=== PATIENT | female | born 1995 | race Caucasian/White ===

== ENCOUNTER 2017-04-10 01:20 | Observation (INO) ==
[2017-04-10] MEDS ORDERED: *HR* Morphine 2 MG/ML SYRINGE IVP PRN (12:57)
[2017-04-10] MEDS ORDERED: 0.9 % Sodium Chloride 1,000 ML IVC ONE (12:57)
[2017-04-10] MEDS ORDERED: Ondansetron 4 MG/2 ML VIAL IVP PRN (12:57)
--- NOTE | 2017-04-10 13:07 | General Surg History&Physical ---
Date of Encounter: 04/10/17 Time of Encounter: 13:04 Assessment and Plan (1) Abdominal pain Current Visit: Yes Status: Acute 21F h/o depression with RLQ pain and thickening of terminal ileum; normal appendix; - begin CLD; advance diet as tolerated - IVF: sliv when tolerating PO - I&O, vitals q4hrs - pain control: tramadol/tylenol - activity as tolerated - abx - repeat labs - serial exams - GI consult in Am, concern for possible Crohn's disease - no acute surgery The assessment and plan as outlined above was discussed with the patient and/or family members who expressed understanding and agreement. All questions were answered. Qualifiers: Abdominal location: right lower quadrant Qualified Code(s): R10.31 - Right lower quadrant pain History of Present Illness Chief complaint: abdominal pain HPI: Ms. Stone is a 21 year old female with a history of depression who presents with 3-4 days of abdominal pain localized to RLQ and R flank with associated nausea, vomiting and anorexia. No reports of fevers, chills, chest pain nor shortness of breath. She states that she has never had such pain before. Her last bowel movement was within the last 24hours. She is currently on her menstrual cycle. A Ct scan was obtained, which I personally reviewed and interpreted, demonstrating thickening of her terminal ileum, with a normal appendix. Past Med Surg Social Fam HX - Past Medical History Medical history: no medical history Psychiatric history: anxiety, depression - Past Surgical History Surgical History: no surgical history - Social History Smoking Status: Current some day smoker Smokeless Tobacco Status: No Alcohol use: none Drug use: none - Family History Mother Hx Family Cardiac Disorders: No Hx Family Respiratory Disorders: No Hx Family Cancer: No Hx Family GI Disorders: No Hx Family Genitourinary Disorders: No Hx Family Endocrine Disorder: No Hx Family Musculoskeletal Disorders: No Hx Family Neuromuscular Disorders: No Hx Family Neurologic Disorders: No Hx Family HEENT Disorders: No Hx Family Autoimmune Disorders: No Hx Family Reproductive Disorders: No Hx Family Psychosocial Disorders: No Hx Family Medical Disorders: No Medications and Allergies Sertraline [Zoloft] 25 mg PO DAILY 06/14/16 [History] 3 Allergy/AdvReac Type Severity Reaction Status Date / Time No Known Allergies Allergy Verified 04/09/17 20:36 Review of Systems All systems PM: A 10-system review of systems was performed and is negative for pertinent findings except as documented above in the HPI. General Surgery Exam Initial Vital Signs Temp Pulse Resp BP Pulse Ox 100.9 F H 93 16 108/60 95 04/10/17 06:41 04/10/17 06:41 04/10/17 06:41 04/10/17 06:41 04/10/17 06:41 - General physical appearance well developed, well nourished, no distress - Eyes normal ocular movement - ENT normal mucosa, normocephalic - Neck no lymphadectomy - Respiratory normal expansion, normal respiratory effort - Cardiovascular Cardiovascular exam: Present: RRR - Abdomen Abdomen general surgery: Present: soft, tender Abdominal Tenderness: Present: RLQ ( not much tenderness on exam) - Integumentary Integumentary general surgery: Present: warm and dry - Neurologic Present: CN 2-12 grossly intact - Musculoskeletal Present: other (FROM in UE/LE bilaterally) - Psychiatric Psychiatric general surgery: Present: A&Ox3 Results - Labs All other labs normal. - Imaging CT scan - abdomen: report reviewed, image reviewed CT scan - pelvis: report reviewed, image reviewed
[2017-04-10 13:22] LABS: Basophils # 0.1 K/mcL (0.0-0.2); Basophils % 0.4 %; Eosinophils # 0.1 K/mcL (0.0-0.6); Eosinophils % 0.2 %; Hematocrit 36.8 % (35.3-44.9); Hemoglobin 11.9 g/dL (11.5-15.4); Immature Granulocytes % 0.4 % (0-4); Lymphocytes % 9.6 %; Mean Corpuscular HGB Conc 32.3 g/dL (31.6-35.5); Mean Corpuscular Hemoglobin 28.4 pg (28.0-33.3); Mean Corpuscular Volume 87.8 fL (83.0-100.0); Mean Platelet Volume 10.3 fL (9.4-12.4); Monocytes # 1.2 K/mcL (0.0-1.3); Monocytes % 6.1 %; Neutrophils # 16.8 K/mcL (1.6-8.9); Platelet Count 260 K/mcL (140-400); Red Blood Count 4.19 M/mcL (3.82-4.97); Red Cell Distribution Width 12.6 % (11.5-14.5); Segmented Neutrophils % 83.3 %
[2017-04-10 13:36] LABS: BUN/Creatinine Ratio 8 (6-26); Blood Urea Nitrogen 7 mg/dL (7-20); Calcium 8.3 mg/dL (8.6-10.8); Carbon Dioxide 22 mEq/L (19-29); Chloride 107 mEq/L (98-109); Glucose 87 mg/dL (70-99); Magnesium 1.4 mg/dL (1.6-2.6); Osmolality,Calculated 281 (280-300); Phosphorous 2.9 mg/dL (2.3-4.7); Potassium 3.7 mEq/L (3.5-4.5); Sodium 137 mEq/L (136-145); eGFR For African Americans > 60 (> 60); eGFR For Non-African Americans > 60 (> 60)
[2017-04-10] MEDS: D5% in 0.45% NACL w KCl 20 MEQ/1,000 ML MLS IVC SCH (15:58)
[2017-04-10] MEDS: Piperacillin/Tazobactam 3.375 GM in 0.9 % Sodium Chloride Mini Bag 100 ML IVPB SCH ×2 (18:47→23:37)
[2017-04-10] MEDS: *HR* Enoxaparin 40 MG/0.4 ML SYRINGE SQ SCH (20:48)
[2017-04-10 21:06] LABS: Bilirubin,Urine Negative (Negative); Blood,Urine Large (Negative); Clarity,Urine Cloudy (Clear); Color,Urine Dark Yellow (Yellow); Glucose,Urine (UA) Normal (Normal); Ketones,Urine Negative (Negative); Leukocyte Esterase,Urine Small (Negative); Nitrite,Urine Negative (Negative); PH,Urine 7.5 pH Units (5.0-8.0); Protein,Urine 100 mg/dL (Neg-Trace); Specific Gravity,Urine 1.015 (1.010-1.025)
[2017-04-10 21:08] LABS: Bacteria,Urine None Seen per hpf (None-Few); Hyaline Casts,Urine None Seen per lpf (None-Few); Squamous Epithelial Cell,Urine Many per lpf (None-Few); WBC,Urine 50-100 per hpf (0-3)
[2017-04-10 21:18] LABS: RBC,Urine TNTC per hpf (0-3)
[2017-04-10] MEDS ORDERED: traMADol 50 MG TABLET PO PRN (23:06)
[2017-04-10] MEDS: Acetaminophen 325 MG TABLET PO PRN (23:35)
[2017-04-11] MEDS: Acetaminophen 325 MG TABLET PO PRN ×2 (08:07→16:29)
[2017-04-11] MEDS: *HR* Enoxaparin 40 MG/0.4 ML SYRINGE SQ SCH (08:08)
[2017-04-11 10:11] LABS: Bilirubin,Urine Small (Negative); Blood,Urine Large (Negative); Color,Urine Dark Yellow (Yellow); Glucose,Urine (UA) Normal (Normal); Ketones,Urine Negative (Negative); Leukocyte Esterase,Urine Moderate (Negative); Nitrite,Urine Negative (Negative); PH,Urine 6.5 pH Units (5.0-8.0); Protein,Urine 100 mg/dL (Neg-Trace); Specific Gravity,Urine 1.021 (1.010-1.025)
[2017-04-11 10:13] LABS: Clarity,Urine Hazy (Clear); Hyaline Casts,Urine None Seen per lpf (None-Few); Squamous Epithelial Cell,Urine Many per lpf (None-Few); WBC,Urine TNTC per hpf (0-3)
[2017-04-11 10:26] LABS: RBC,Urine 15-30 per hpf (0-3)
[2017-04-11 10:27] LABS: Bacteria,Urine Few per hpf (None-Few)
[2017-04-11] MEDS: D5% in 0.45% NACL w KCl 20 MEQ/1,000 ML MLS IVC SCH (10:32)
[2017-04-11] MEDS: Piperacillin/Tazobactam 3.375 GM in 0.9 % Sodium Chloride Mini Bag 100 ML IVPB SCH ×2 (10:33→16:29)
--- NOTE | 2017-04-11 11:15 | Gastroenterology Consult Note ---
Addendum entered and electronically signed by John Paul Perez DO 14:28: Patient will get colonoscopy tomorrow. Continue bowel prep as ordered. NPO. Original Note: <John Paul Perez - Last Filed: 04/11/17 13:41> Date of Encounter: 04/11/17 Time of Encounter: 11:09 - Assessment and plan (1) UTI (urinary tract infection) Current Visit: Yes Status: Acute Assessment and plan: UTI possible pyelonephritis +right flank pain continues to spike fever, CT shows urothelial thickening and enhancement of right renal pelvis and ureter. on zosyn worsening leukocytosis awaiting cultures Qualifiers: Urinary tract infection type: acute cystitis Hematuria presence: with hematuria Qualified Code(s): N30.01 - Acute cystitis with hematuria (2) Abdominal pain Current Visit: Yes Status: Acute Assessment and plan: RLQ + right flank pain denies N/V/D, hematochezia normal bowel movement three days ago denies family hx of inflammatory bowel disease first occurrence of pain CT abdomen/pelvis shows terminal ileum mural thickening/inflammation elevated ESR/CRP ANCA and Saccromyces cerevisiae abs pending patients history points towards an enteritis picture. Will await antibody results. If positive consider colonoscopy. otherwise follow up in two week outpatient office. Qualifiers: Abdominal location: right lower quadrant Qualified Code(s): R10.31 - Right lower quadrant pain - Time Spent With Patient Total time spent is greater than 50% in coordination of care (as documented) at patient's floor/unit and/or counseling patient: GI History of Present Illness - Data of Consult Patient: new to practice Consult date: 04/11/17 Requesting Physician: Kenroy Lazaro MD - Consult Narrative Reason for consult: concern for chron's disease History of present illness: Ms. Stone is a 21 year old female presented with chief complaint of right lower quadrant abdominal pain and right flank pain 2 days before admission. Patient states the pain is sharp, nonradiating and not associated with nausea, vomiting, diarrhea. She denies hematochezia, fevers, chills. Patient states she has never had this type of abdominal pain before and never has any abdominal pathology before. States she started her menstrual cycle 2 days ago. Reports her bowel pain is resolved today. Patient had CT abdomen/pelvis which showed inflammation/mural thickening of the terminal ileum and urothelial thickening and enhancement of the right renal pelvis and ureter. She had elevation in her ESR (27) and CRP (227). Furthermore urinalysis showed evidence of UTI with large leukocyte esterase and white blood cells and urine bacteria. Patient denies previous abdominal surgeries, previous pelvic surgeries. Denies any family history of inflammatory bowel disease, colon cancer. Reports drinking 1-2 cans of beer couple times a month. Reports smoking 1 pack a day. Currently patient is unemployed. Past Med Surg Social Fam HX - Past Medical History Medical history: no medical history Psychiatric history: anxiety, depression - Past Surgical History Surgical History: no surgical history - Social History Smoking Status: Current some day smoker Smokeless Tobacco Status: No Alcohol use: none Drug use: none - Family History Mother Hx Family Cardiac Disorders: No Hx Family Respiratory Disorders: No Hx Family Cancer: No Hx Family GI Disorders: No Hx Family Genitourinary Disorders: No Hx Family Endocrine Disorder: No Hx Family Musculoskeletal Disorders: No Hx Family Neuromuscular Disorders: No Hx Family Neurologic Disorders: No Hx Family HEENT Disorders: No Hx Family Autoimmune Disorders: No Hx Family Reproductive Disorders: No Hx Family Psychosocial Disorders: No Hx Family Medical Disorders: No Review of Systems: Constitutional: Denies fever, chills HEENT: Denies headache, vision changes, neck pain, sore throat, rhinorrhea Heart: Denies chest pain palpitations Lungs: Denies shortness of breath cough Abdomen: Reported abdominal pain. denies nausea, vomiting, diarrhea Back: Denies back pain Kidney: Denies dysuria, hematuria Skin: warm and dry Extremities: Denies swelling, pain Neuro: Denies numbness, and tingling - Constitutional Vitals: Temp Pulse Resp BP Pulse Ox 98.8 F 90 14 95/59 100 04/11/17 09:53 04/11/17 09:53 04/11/17 09:53 04/11/17 09:53 04/11/17 09:53 - Other Additional findings: General: Pleasant without distress HEENT: Head atraumatic, normocephalic, EOMI, PERRLA, neck nontender to palpation , absent lymphadenopathy, Moist Mucous Membranes, Heart: Regular rate and rhythm with no murmur Lungs: Clear to auscultation bilaterally Abdomen: Soft nontender, nondistended positive bowel sounds Skin: warm and dry Extremities: Absent pedal edema, Kidney: right flank pain Neuro: Cranial nerves II through XII intact, UE and LE sensation equal bilaterally, UE and LEstrength 5/5, alert oriented 3, Heel to lizarraga intact, finger to nose intact, Gait intact, rhombergs sign negative, b/l plantar reflexes downwards Vascular: Pedal and radial pulses 2 out of 4 Results - Labs CBC & Chem 7: 04/10/17 13:13 04/10/17 13:13 Labs: Last Result ESR 71 mm/hr (0-15) H 04/11/17 10:18 Calcium 8.3 mg/dL (8.6-10.8) L 04/10/17 13:13 C-Reactive Protein 227 mg/L (Less than 5) H 04/11/17 10:18 Entire Visit Hgb 11.9 g/dL (11.5-15.4) 04/10/17 13:13 Hct 36.8 % (35.3-44.9) 04/10/17 13:13 Consult Discharge Plan - Plan Referrals: NONE,PCP [Primary Care Provider] - <Josefa Rosales - Last Filed: 04/11/17 14:38> Date of Encounter: 04/11/17 - Time Spent With Patient Total time spent is greater than 50% in coordination of care (as documented) at patient's floor/unit and/or counseling patient: GI History of Present Illness - Data of Consult Requesting Physician: Kenroy Lazaro MD - Consult Narrative History of present illness: Ms. Stone is a 21 year old female - Constitutional Vitals: Temp Pulse Resp BP Pulse Ox 100.2 F H 100 16 101/60 94 04/11/17 12:26 04/11/17 12:26 04/11/17 12:26 04/11/17 12:26 04/11/17 12:26 Results - Labs CBC & Chem 7: 04/10/17 13:13 04/10/17 13:13 Labs: Last Result ESR 71 mm/hr (0-15) H 04/11/17 10:18 Calcium 8.3 mg/dL (8.6-10.8) L 04/10/17 13:13 C-Reactive Protein 227 mg/L (Less than 5) H 11/27/17 10:18 Entire Visit Hgb 11.9 g/dL (11.5-15.4) 04/10/17 13:13 Hct 36.8 % (35.3-44.9) 04/10/17 13:13 - Attending Attestation I examined this patient and my medical decision-making was reviewed with the Resident Physician. I agree with the documented findings, disposition and treatment plan as described except to the extent set forth below. Patient with an 21-year-old female with a pyelonephritis. She is also having terminal bowel wall thickening but do not have chronic GI symptoms doubt that she has Crohn disease. Probably she is having acute enteritis but because patient do not seem to be a compliant patient I am concerned that she will not follow up as out pt will do we will do a colonoscopy with TI examination to make sure there is no ulceration/Crohns
--- NOTE | 2017-04-11 13:15 | General Surgery Progress Note ---
Date of Encounter: 04/11/17 Time of Encounter: 13:11 - Assessment and Plan (1) Abdominal pain Current Visit: Yes Status: Inactive 21F with terminal ileitis; - GI for C-Scope in Am - cont abx - follow up urine culture Qualifiers: Abdominal location: right lower quadrant Qualified Code(s): R10.31 - Right lower quadrant pain Subjective Patient reports: no new complaints (febrile yesterday to 103) Objective Vital Signs - Last 8 Hours Temp Pulse Resp BP Pulse Ox 04/11/17 12:26 100.2 F H 100 16 101/60 94 04/11/17 09:53 98.8 F 90 14 95/59 100 04/11/17 07:11 103.0 F H 94 16 93/57 97 04/11/17 05:27 99.4 F 108 18 107/57 98 Intake and Output 04/10/17 04/11/17 04/11/17 23:59 07:59 15:59 Intake Total 50 / 50 1100 / 1100 Output Total 250 / 250 Balance -200 / -200 1100 / 1100 Intake: IV Fluids 50 / 50 1100 / 1100 KCl 20mEq IN D5%-0.45 NACL 20 1000 / 1000 meq In 1,000 ml @ 100 mls/hr IVC .Q10H EMILY Rx#:[id number] Zosyn 3.375 GM In 0.9 % Sodium 50 / 50 100 / 100 Chloride (Mini-Bag +) 100 ML @ 25 mls/hr IVPB Q8HR EMILY Rx#: [id number] Oral 0 / 0 0 / 0 Output: Urine 250 / 250 Other: Meal NPO for breakfast. # Voids 1 Blood Glucose* 93 - General physical appearance well developed, well nourished, no distress - Respiratory normal expansion, normal respiratory effort - Cardiovascular Cardiovascular exam: Present: RRR - Abdomen Abdomen: Present: soft, tender (minimally tender) - Neurologic CN 2-12 grossly intact - Psychiatric oriented to time, oriented to person, oriented to place - Labs 04/10/17 13:13 04/10/17 13:13 Diabetes panel 04/10/17 Range/Units 13:13 Sodium 137 (136-145) mEq/L Potassium 3.7 (3.5-4.5) mEq/L Chloride 107 (98-109) mEq/L Carbon Dioxide 22 (19-29) mEq/L BUN 7 (7-20) mg/dL Creatinine 0.89 (0.57-1.11) mg/dL Glucose 87 (70-99) mg/dL Calcium 8.3 L (8.6-10.8) mg/dL Calcium panel 04/10/17 Range/Units 13:13 Calcium 8.3 L (8.6-10.8) mg/dL Phosphorus 2.9 (2.3-4.7) mg/dL Pituitary panel 04/10/17 Range/Units 13:13 Sodium 137 (136-145) mEq/L Potassium 3.7 (3.5-4.5) mEq/L Chloride 107 (98-109) mEq/L Carbon Dioxide 22 (19-29) mEq/L BUN 7 (7-20) mg/dL Creatinine 0.89 (0.57-1.11) mg/dL Glucose 87 (70-99) mg/dL Calcium 8.3 L (8.6-10.8) mg/dL Adrenal panel 04/10/17 Range/Units 13:13 Sodium 137 (136-145) mEq/L Potassium 3.7 (3.5-4.5) mEq/L Chloride 107 (98-109) mEq/L Carbon Dioxide 22 (19-29) mEq/L BUN 7 (7-20) mg/dL Creatinine 0.89 (0.57-1.11) mg/dL Glucose 87 (70-99) mg/dL Calcium 8.3 L (8.6-10.8) mg/dL Consult Discharge Plan - Plan Referrals: NONE,PCP [Primary Care Provider] -
[2017-04-11 16:36] LABS: Basophils # 0.1 K/mcL (0.0-0.2); Basophils % 0.4 %; Eosinophils # 0.1 K/mcL (0.0-0.6); Eosinophils % 0.4 %; Hematocrit 37.2 % (35.3-44.9); Hemoglobin 11.8 g/dL (11.5-15.4); Immature Granulocytes % 0.6 % (0-4); Lymphocytes # 1.5 K/mcL (0.6-4.6); Lymphocytes % 9.2 %; Mean Corpuscular HGB Conc 31.7 g/dL (31.6-35.5); Mean Corpuscular Hemoglobin 27.8 pg (28.0-33.3); Mean Corpuscular Volume 87.7 fL (83.0-100.0); Monocytes # 1.2 K/mcL (0.0-1.3); Monocytes % 7.3 %; Neutrophils # 12.9 K/mcL (1.6-8.9); Platelet Count 262 K/mcL (140-400); Red Blood Count 4.24 M/mcL (3.82-4.97); Red Cell Distribution Width 12.9 % (11.5-14.5); Segmented Neutrophils % 82.1 %
[2017-04-11] MEDS ORDERED: SODIUM CHLORIDE/NAHCO3/KCL/PEG 4,000 ML SOLN.RECON PO ONE (17:00)
[2017-04-12] MEDS: Piperacillin/Tazobactam 3.375 GM in 0.9 % Sodium Chloride Mini Bag 100 ML IVPB SCH ×2 (00:40→09:00)
[2017-04-12] MEDS: D5% in 0.45% NACL w KCl 20 MEQ/1,000 ML MLS IVC SCH ×2 (00:45→12:25)
[2017-04-12] MEDS: *HR* Enoxaparin 40 MG/0.4 ML SYRINGE SQ SCH (06:29)
--- NOTE | 2017-04-12 08:02 | General Surgery Progress Note ---
Date of Encounter: 04/12/17 Time of Encounter: 08:00 - Assessment and Plan (1) Abdominal pain Current Visit: Yes Status: Inactive 21F with terminal ileitis; febrile overnight, wbc decreasing - plan for C-scope with GI today - further management pending results - cont abx - likely begin diet after procedure Qualifiers: Abdominal location: right lower quadrant Qualified Code(s): R10.31 - Right lower quadrant pain Subjective Patient reports: other (febrile; pain controlled; no acute issues overnight) Objective Vital Signs - Last 8 Hours Temp Pulse Resp BP Pulse Ox 04/12/17 06:49 99.2 F 96 16 107/57 95 04/12/17 04:01 99.4 F 68 16 111/65 97 04/12/17 00:21 101.0 F H 75 16 93/53 95 Intake and Output 04/11/17 04/12/17 04/12/17 23:59 07:59 15:59 Intake Total 1100 / 1100 0 / 0 Output Total 0 / 0 0 / 0 Balance 1100 / 1100 0 / 0 Intake: IV Fluids 1100 / 1100 KCl 20mEq IN D5%-0.45 NACL 20 1000 / 1000 meq In 1,000 ml @ 100 mls/hr IVC .Q10H EMILY Rx#:[id number] Zosyn 3.375 GM In 0.9 % Sodium 100 / 100 Chloride (Mini-Bag +) 100 ML @ 25 mls/hr IVPB Q8HR EMILY Rx#: [id number] Oral 0 / 0 0 / 0 Output: Urine 0 / 0 0 / 0 Other: # Voids 1 # Bowel Movements 0 Blood Glucose* 97 - General physical appearance well developed, well nourished, no distress - Respiratory normal expansion, normal respiratory effort - Cardiovascular Cardiovascular exam: Present: RRR - Abdomen Abdomen: Present: soft, tender (non peritoneal) - Neurologic CN 2-12 grossly intact - Psychiatric oriented to time, oriented to person - Labs 04/11/17 10:00 04/10/17 13:13 Consult Discharge Plan - Plan Referrals: NONE,PCP [Primary Care Provider] -
[2017-04-12 14:30] VITALS: BP 99/62
[2017-04-12] MEDS ORDERED: Piperacillin/Tazobactam 3.375 GM/200 ML BAG IVPB SCH (16:00)
[2017-04-13 12:40] LABS: Myeloperoxidase Ab 1 AU/mL (0-19); Saccharomyces cerevisiae IgA 15.1 Units (0.0-24.9); Serine Protease-3 Antibody 0 AU/mL (0-19)
--- NOTE | 2017-04-14 15:32 | Discharge Summary ---
Date of Encounter: 04/14/17 Time of Encounter: 15:30 - Discharge Diagnosis (1) Abdominal pain Priority: Primary Status: Inactive Comments: came in with concern for terminal ileitis; colonoscopy not performed due to not taking the bowel prep. she did have improvement in her symptoms over the course of her hospital stay. - Discharge Medications Home Medications: Sertraline [Zoloft] 25 mg PO DAILY 06/14/16 [History] Allergies/Adverse Reactions: 3 Allergy/AdvReac Type Severity Reaction Status Date / Time No Known Allergies Allergy Verified 04/09/17 20:36 General Surgery Exam Initial Vital Signs Temp Pulse Resp BP Pulse Ox 100.9 F H 93 16 108/60 95 04/10/17 06:41 04/10/17 06:41 04/10/17 06:41 04/10/17 06:41 04/10/17 06:41 - General physical appearance well developed - Eyes normal ocular movement - ENT normocephalic - Respiratory normal expansion, normal respiratory effort - Cardiovascular Cardiovascular exam: Present: RRR - Abdomen Abdomen general surgery: Present: soft, tender Abdominal Tenderness: Present: RLQ - Integumentary Integumentary general surgery: Present: warm and dry - Neurologic Present: CN 2-12 grossly intact - Musculoskeletal Present: other (FROM in UE/LE bilaterally) - Psychiatric Psychiatric general surgery: Present: A&Ox3 Date of admission: 04/10/17 04:58 Primary care physician: PCP NONE Consults: 04/10/17 13:11 Consult to Gastroenterology [CONS] Routine Consulting Provider: Gastroenterology Renetta Reason for Consult: eval for possible Crohn's disease Call Completed: No Discharging clinician: Kenroy Lazaro Anticipated date of discharge: 04/13/17 - Patient Status Disposition: Left Against Medical Advice Condition: Fair Overall status at discharge: patient is progressing back to baseline - Discharge Instructions Follow Up With: NONE,PCP [Primary Care Provider] - - Hospital Course Hospital course: Ms. Stone is a 21 year old female admitted witih terminal ileitis. Was started on antibiotics. A colonoscopy was planned but she did not take the bowel prep as advised. She subsequently left AMA. - Time Spent with Patient Total time spent providing and/or coordinating discharge services: Labs on day of discharge: Preliminary micro results at discharge 04/10/17 22:58 Blood Culture - Preliminary Peripheral Venipuncture No growth. 04/10/17 22:58 Blood Culture - Preliminary Peripheral Venipuncture No growth.
== END 2017-04-12 15:05 | disposition left against medical advice (07) ==
LOC: 3ANU
PROVIDERS: ADMIT Surgery; ATTEND Surgery

== ENCOUNTER 2017-04-23 21:56 | Inpatient (IN) ==
[2017-04-24] MEDS ORDERED: Ondansetron 4 MG/2 ML VIAL IVP PRN (00:53)
[2017-04-24] MEDS ORDERED: *HR* Morphine 2 MG/ML SYRINGE IVP PRN (00:53)
[2017-04-24] MEDS ORDERED: Naloxone 0.4 MG/ML INJ IVP PRN (00:53)
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
[2017-04-24] MEDS: MetroNIDAZOLE 500 MG/100 ML 500 MG/100 ML BAG IVPB SCH ×4 (02:47→23:29)
[2017-04-24] MEDS: Pantoprazole 40 MG VIAL IVP SCH ×3 (02:47→17:30)
[2017-04-24] MEDS: 0.9 % Sodium Chloride 1,000 ML IVC SCH ×2 (02:48→15:57)
[2017-04-24 05:26] LABS: INR 1.1; Prothrombin Time 12.2 Seconds (9.4-12.1)
[2017-04-24 05:37] LABS: Alanine Aminotransferase 15 Units/L (0-55); Albumin 3.2 g/dL (3.5-5.0); Albumin/Globulin Ratio 0.9 (1.1-2.2); Alkaline Phosphatase 55 Units/L (38-126); Aspartate Amino Transferase 15 Units/L (5-34); BUN/Creatinine Ratio 8 (6-26); Bilirubin,Total 0.4 mg/dL (0.2-1.2); Blood Urea Nitrogen 7 mg/dL (7-20); Calcium 9.5 mg/dL (8.6-10.8); Carbon Dioxide 28 mEq/L (19-29); Chloride 107 mEq/L (98-109); Globulin 3.7 g/dL (2.4-3.5); Glucose 87 mg/dL (70-99); Magnesium 2.2 mg/dL (1.6-2.6); Osmolality,Calculated 285 (280-300); Potassium 4.9 mEq/L (3.5-4.5); Sodium 139 mEq/L (136-145); Total Protein 6.9 g/dL (6.0-8.3); eGFR For African Americans > 60 (> 60); eGFR For Non-African Americans > 60 (> 60)
[2017-04-24 05:39] LABS: Basophils # 0.1 K/mcL (0.0-0.2); Basophils % 0.7 %; Eosinophils # 0.5 K/mcL (0.0-0.6); Eosinophils % 3.6 %; Hemoglobin 12.4 g/dL (11.5-15.4); Immature Granulocytes % 0.3 % (0-4); Lymphocytes # 4.2 K/mcL (0.6-4.6); Lymphocytes % 33.9 %; Mean Corpuscular HGB Conc 31.8 g/dL (31.6-35.5); Monocytes # 0.7 K/mcL (0.0-1.3); Monocytes % 5.2 %; Platelet Count 404 K/mcL (140-400); Red Blood Count 4.43 M/mcL (3.82-4.97); Red Cell Distribution Width 13.2 % (11.5-14.5); Segmented Neutrophils % 56.3 %
[2017-04-24] MEDS: *HR* Heparin 5,000 UNIT/ML VIAL SQ SCH ×2 (05:50→17:30)
--- NOTE | 2017-04-24 12:53 | Event Note ---
Date of Encounter: 04/24/17 Time of Encounter: 12:41 Seen in the room with her boyfriend. She is willing to undergo colonoscopy now that her boyfriend will be here to support her. Like to keep her nothing by mouth but she may go AMA because of that. We will allow her a clear liquid diet but that will not advance. Keep her nothing by mouth at midnight and follow up with GI recommendations. Vital signs: Reviewed Physical exam significant for mild discomfort to palpation of abdomen but abdomen is soft and nondistended. Sounds are normoactive. Labs: Show cytosis of 12.5 Ileitis: Keep patient nothing by mouth at midnight, continue Cipro Flagyl, IV fluids, follow-up with gastroenterology consult.
[2017-04-24] MEDS: Nicotine 21 MG PATCH.TD24 TD SCH (15:57)
[2017-04-25 05:38] LABS: Basophils # 0.1 K/mcL (0.0-0.2); Basophils % 1.2 %; Eosinophils # 0.3 K/mcL (0.0-0.6); Eosinophils % 3.5 %; Hematocrit 38.6 % (35.3-44.9); Hemoglobin 11.9 g/dL (11.5-15.4); Immature Granulocytes % 0.4 % (0-4); Lymphocytes # 3.5 K/mcL (0.6-4.6); Lymphocytes % 37.3 %; Mean Corpuscular HGB Conc 30.8 g/dL (31.6-35.5); Mean Corpuscular Hemoglobin 27.4 pg (28.0-33.3); Mean Corpuscular Volume 88.7 fL (83.0-100.0); Mean Platelet Volume 10.2 fL (9.4-12.4); Monocytes # 0.6 K/mcL (0.0-1.3); Monocytes % 6.1 %; Neutrophils # 4.8 K/mcL (1.6-8.9); Platelet Count 353 K/mcL (140-400); Red Blood Count 4.35 M/mcL (3.82-4.97); Red Cell Distribution Width 13.2 % (11.5-14.5); Segmented Neutrophils % 51.5 %
[2017-04-25 05:58] LABS: BUN/Creatinine Ratio 9 (6-26); Blood Urea Nitrogen 7 mg/dL (7-20); Calcium 8.6 mg/dL (8.6-10.8); Carbon Dioxide 26 mEq/L (19-29); Chloride 108 mEq/L (98-109); Glucose 86 mg/dL (70-99); Osmolality,Calculated 291 (280-300); Potassium 3.8 mEq/L (3.5-4.5); Sodium 142 mEq/L (136-145); eGFR For African Americans > 60 (> 60); eGFR For Non-African Americans > 60 (> 60)
[2017-04-25] MEDS: Pantoprazole 40 MG VIAL IVP SCH ×2 (06:17→18:13)
[2017-04-25] MEDS: *HR* Heparin 5,000 UNIT/ML VIAL SQ SCH ×2 (06:17→18:20)
[2017-04-25] MEDS: MetroNIDAZOLE 500 MG/100 ML 500 MG/100 ML BAG IVPB SCH ×2 (08:52→15:15)
[2017-04-25] MEDS: Nicotine 21 MG PATCH.TD24 TD SCH (08:52)
[2017-04-25] MEDS ORDERED: SODIUM CHLORIDE/NAHCO3/KCL/PEG 4,000 ML SOLN.RECON PO ONE (12:18)
--- NOTE | 2017-04-25 15:10 | Electrocardiograph Report ---
[address] [address] Test Date: 2017-04-24 Pat Name: Franchesca Stone Department: 113 Room: 3B Gender: F Manager Medicaid: : 1995 Requested By: Daniel Wan Order Number: [id number] Reading MD: Neil Gonzalez Measurements Intervals [place] Rate: 49 P: 35 DC: 147 QRS: 19 QRSD: 106 T: 15 QT: 446 QTc: 414 Interpretive Statements SINUS BRADYCARDIA WITH SINUS ARRHYTHMIA Electronically Signed On 04-25-2017 15:08:54 EST by Neil Gonzalez
[2017-04-25 22:15] LABS: Adenovirus F 40/41 PCR Not detected (Not detect); Astrovirus PCR Not detected (Not detect); C.difficile Toxin A/B by PCR Not detected (Not detect); Campylobacter by PCR Not detected (Not detect); Cryptosporidium by PCR Not detected (Not detect); Cyclospora cayetanensis PCR Not detected (Not detect); E. coli O157 by PCR Not detected (Not detect); Entamoeba histolytica PCR Not detected (Not detect); Enteroaggregative E.coli(EAEC) Not detected (Not detect); Enteropathogenic E.coli(EPEC) Not detected (Not detect); Enterotoxigenic E.coli (ETEC) Not detected (Not detect); Giardia lamblia PCR Not detected (Not detect); Norovirus GI/GII PCR Not detected (Not detect); Plesiomonas shigelloides PCR Not detected (Not detect); Rotavirus A PCR Not detected (Not detect); Salmonella PCR Not detected (Not detect); Sapovirus PCR Not detected (Not detect); Shig/EnteroinvasiveE coli EIEC Not detected (Not detect); Shigalike tox-prod E coli STEC Not detected (Not detect); Vibrio PCR Not detected (Not detect); Vibrio cholerae PCR Not detected (Not detect); Yersinia enterocolitica PCR Not detected (Not detect)
[2017-04-26] MEDS: MetroNIDAZOLE 500 MG/100 ML 500 MG/100 ML BAG IVPB SCH ×3 (00:36→16:08)
--- NOTE | 2017-04-26 02:11 | Internal Med Progress Note ---
Date of Encounter: 04/25/17 Time of Encounter: 14:09 - Assessment and plan (1) Abdominal pain Current Visit: No Status: Acute Assessment and plan: 21 year old female presented to recurrent abdominal pain. She was admitted 10 days ago with concern for Crohn's disease and GI evaluated the patient. She was scheduled for a colonoscopy but then went AMA after her abdominal pain improved. Two days ago her pain returned but more severe. Now patient went to [place] ED where patient had elevated WBC. CT abdomen and pelvis showed inflammatory changes of terminal ileum and acute enteritis. Also found to have UTI. She is on Cipro/Flagyl and morphine for pain. GI was consulted and will give patient colonoscopy tomorrow. Qualifiers: Abdominal location: unspecified location Qualified Code(s): R10.9 - Unspecified abdominal pain (2) UTI (urinary tract infection) Current Visit: Yes Status: Acute Assessment and plan: On Cipro Qualifiers: Urinary tract infection type: acute cystitis Hematuria presence: with hematuria Qualified Code(s): N30.01 - Acute cystitis with hematuria (3) Depression Current Visit: Yes Status: Acute Qualifiers: Depression Type: major depressive disorder Active/Remission status: currently active Major depression episode severity: mild Qualified Code(s): F32.0 - Major depressive disorder, single episode, mild (4) DVT prophylaxis Current Visit: Yes Status: Acute - Subjective Interval history: No complaints. Abdominal pain resolved. - Constitutional Vitals: Temp Pulse Resp BP Pulse Ox 97.8 F 57 16 106/60 95 04/25/17 22:35 04/25/17 22:35 04/25/17 22:35 04/25/17 22:35 04/25/17 22:35 General appearance: Present: cooperative, disheveled, A&O X 3, pleasant, no acute distress, answers questions appropriately - Respiratory Respiratory exam: Present: CTAB. Absent: accessory muscle use, rales, rhonchi, wheezes - Cardiovascular Cardiovascular exam: Present: RRR, +S1, +S2. Absent: diastolic murmur, gallop, rubs, systolic murmur - GI/Abdominal GI/Abdominal exam: Present: normal bowel sounds, soft, no peritoneal signs. Absent: distended, tenderness Internal Medicine: Result - Labs CBC & Chem 7: 04/25/17 05:01 04/25/17 05:01 Labs: Short CBC 04/25/17 Range/Units 05:01 WBC 9.3 (4.3-11.1) K/mcL Hgb 11.9 (11.5-15.4) g/dL Hct 38.6 (35.3-44.9) % Plt Count 353 (140-400) K/mcL Neutrophils # 4.8 (1.6-8.9) K/mcL BMP 04/25/17 05:01 Sodium 142 Potassium 3.8 D Chloride 108 Carbon Dioxide 26 BUN 7 Creatinine 0.81 Glucose 86 Calcium 8.6 - ABG Interpretation ABG results: PT/INR, D-dimer PT 12.2 Seconds (9.4-12.1) H 04/24/17 04:51 Consult Discharge Plan - Plan Referrals: Daniela Chau DO [Resident] - 05/04/17 9:00 am NONE,PCP [Primary Care Provider] -
[2017-04-26 05:20] LABS: Basophils # 0.1 K/mcL (0.0-0.2); Eosinophils # 0.3 K/mcL (0.0-0.6); Eosinophils % 2.8 %; Hematocrit 39.5 % (35.3-44.9); Hemoglobin 12.5 g/dL (11.5-15.4); Immature Granulocytes % 0.4 % (0-4); Lymphocytes # 3.6 K/mcL (0.6-4.6); Lymphocytes % 35.4 %; Mean Corpuscular HGB Conc 31.6 g/dL (31.6-35.5); Mean Corpuscular Hemoglobin 27.8 pg (28.0-33.3); Mean Corpuscular Volume 87.8 fL (83.0-100.0); Mean Platelet Volume 10.6 fL (9.4-12.4); Monocytes # 0.6 K/mcL (0.0-1.3); Monocytes % 5.6 %; Neutrophils # 5.5 K/mcL (1.6-8.9); Platelet Count 391 K/mcL (140-400); Red Cell Distribution Width 13.2 % (11.5-14.5); Segmented Neutrophils % 54.8 %
[2017-04-26 05:52] LABS: BUN/Creatinine Ratio 8 (6-26); Blood Urea Nitrogen 7 mg/dL (7-20); Carbon Dioxide 24 mEq/L (19-29); Chloride 108 mEq/L (98-109); Glucose 82 mg/dL (70-99); Osmolality,Calculated 289 (280-300); Potassium 3.4 mEq/L (3.5-4.5); Sodium 141 mEq/L (136-145); eGFR For African Americans > 60 (> 60); eGFR For Non-African Americans > 60 (> 60)
[2017-04-26] MEDS: Pantoprazole 40 MG VIAL IVP SCH ×2 (06:04→17:49)
[2017-04-26] MEDS: *HR* Heparin 5,000 UNIT/ML VIAL SQ SCH ×2 (06:04→17:49)
[2017-04-26] MEDS: Nicotine 21 MG PATCH.TD24 TD SCH (08:43)
--- NOTE | 2017-04-26 10:50 | Anesthesia Evaluation PreOp ---
Date of Encounter: 04/26/17 Time of Encounter: 12:51 - Past History Planned Operation: colonoscopy Cardiac History: Denies any Significant Hx Pulmonary History: Smoker (2ppd) [employer] History: Other (questionable intellectual disability by history) Other Medical History: Other (anxiety/depression) Anesthesia History: Past Anesthesia (none) : No Test: Negative (04-23-17) Alcohol Use: none Drug use: none Medications and Allergies Sertraline [Zoloft] 25 mg PO DAILY 06/14/16 [History] 3 Allergy/AdvReac Type Severity Reaction Status Date / Time No Known Allergies Allergy Verified 04/09/17 20:36 - Meds/Allergy Pre-op Review Medications Reviewed: Yes Allergies Reviewed: Yes Beta Blockers on Current Med List: No Anesthesia Results - Labs 04/26/17 03:35 04/26/17 03:35 Anesthesia Exam Selected Entries 04/26/17 12:45 Temperature 98.0 F Pulse Rate 50 Respiratory Rate 15 Blood Pressure 125/60 O2 Sat by Pulse Oximetry 98 NPO (# of Hours): 8 - HEENT Pupil (Motor): EOMI Mallampati: III Teeth: Poor dentition Oral Opening: Less than or equal to 3 - [employer]IV[employer]ITY [employer] LOC: Oriented [employer] Motor: Normal RUE, Normal LUE, Normal RLE, Normal LLE, Normal Face [employer] Sensory: Normal: RUE, LUE, RLE, LLE, Face - Cardiac Rhythm: Regular Murmur: None - Pulmonary Breath Sounds: bilateral Clear Respiratory Effort: Symmetrical Anesthesia Assess/Plan ASA Score: 2 Modified Samanta Scale for Level of Consciousness: Cooperative, oriented, and tranquil Anesthetic Plan: MAC Monitoring Plan: Standard Monitors Recovery Plan: Other (discussed MAC, agrees to proceed)
--- NOTE | 2017-04-26 11:06 | Internal Med Progress Note ---
Date of Encounter: 04/26/17 Time of Encounter: 11:04 - Assessment and plan (1) Ileitis, terminal Current Visit: Yes Status: Acute Assessment and plan: Colonoscopy shows ileum strciture biopsied, probable crohn's disease Continue current management Qualifiers: Digestive disease complication type: unspecified complication Qualified Code(s): K50.019 - Crohn's disease of small intestine with unspecified complications (2) Abdominal pain Current Visit: Yes Status: Acute Assessment and plan: Continue management as in terminal ileitis Qualifiers: Abdominal location: unspecified location Qualified Code(s): R10.9 - Unspecified abdominal pain (3) UTI (urinary tract infection) Current Visit: Yes Status: Suspected Assessment and plan: Suspected Urine culture grossly mixed Will repeat Continue cipro Qualifiers: Urinary tract infection type: acute cystitis Hematuria presence: with hematuria Qualified Code(s): N30.01 - Acute cystitis with hematuria (4) DVT prophylaxis Current Visit: Yes Status: Acute Assessment and plan: Heparin SQ (5) Depression Current Visit: Yes Status: Chronic Assessment and plan: Continue home meds Qualifiers: Depression Type: major depressive disorder Active/Remission status: currently active Major depression episode severity: mild Qualified Code(s): F33.0 - Major depressive disorder, recurrent, mild - Subjective Interval history: Seen and evaluated at bedside with partner Admitted and being managed for enteritis, terminal ileitis Awaiting colonoscopy No new complains - Constitutional Vitals: Temp Pulse Resp BP Pulse Ox 98.4 F 54 18 95/47 98 04/26/17 07:10 04/26/17 07:10 04/26/17 07:10 04/26/17 07:10 04/26/17 07:10 General appearance: Present: cooperative, disheveled, A&O X 3, pleasant, no acute distress, answers questions appropriately - Head Head exam: Present: atraumatic, normocephalic - Eye Eye exam: Present: PERRL, conjuntiva pink, sclera anicteric Pupils: Present: PERRL - Neck Neck exam general surgery: Present: supple, trachea midline. Absent: lymphadenopathy - Respiratory Respiratory exam: Present: CTAB. Absent: accessory muscle use, rales, rhonchi, wheezes - Cardiovascular Cardiovascular exam: Present: RRR, +S1, +S2. Absent: diastolic murmur, gallop, rubs, systolic murmur - GI/Abdominal GI/Abdominal exam: Present: normal bowel sounds, soft, no peritoneal signs. Absent: distended, tenderness - Extremities Exam Extremities exam: Present: warm, radial pulses palpable and symmetrical. Absent : calf tenderness, cyanotic, pedal edema - Neurological Exam Neurological exam: Present: alert, CN II-XII intact, oriented X3, no focal deficits. Absent: pronater drift, facial droop, speech deficit - Skin Skin exam: Present: dry, intact Internal Medicine: Result - Labs CBC & Chem 7: 04/26/17 03:35 04/26/17 03:35 Labs: Short CBC 04/26/17 Range/Units 03:35 WBC 10.1 (4.3-11.1) K/mcL Hgb 12.5 (11.5-15.4) g/dL Hct 39.5 (35.3-44.9) % Plt Count 391 (140-400) K/mcL Neutrophils # 5.5 (1.6-8.9) K/mcL BMP 04/26/17 03:35 Sodium 141 Potassium 3.4 L Chloride 108 Carbon Dioxide 24 BUN 7 Creatinine 0.84 Glucose 82 Calcium 9.0 - ABG Interpretation ABG results: PT/INR, D-dimer PT 12.2 Seconds (9.4-12.1) H 04/24/17 04:51 Consult Discharge Plan - Plan Referrals: Daniela Chau DO [Resident] - 05/04/17 9:00 am NONE,PCP [Primary Care Provider] -
[2017-04-26] MEDS ORDERED: Propofol 500 MG/50 ML INFUS..BTL ONE (13:25)
--- NOTE | 2017-04-26 13:27 | Anesthesia Evaluation Post Op ---
Date of Encounter: 04/26/17 Time of Encounter: 13:26 - Vital Signs Vital Signs: 103/52, HR 53, 98%, RR16 - Lungs Lungs: Clear Ascult./Percussion - Airway Airway: Non-obstructed - Cardiovascular Regular Rate - Mental Status Mental Status: Alert & Oriented, Answers Appropriately - Pain Pain Scale: 0 Pain Scale used: Numeric (1 - 10) - Nausea Vomiting Nausea Vomiting: Not Present - Hydration Hydration: NPO, Has not voided - Discharge PostOp Status: Transfer Patient to floor
[2017-04-26 15:31] VITALS: BP 97/57
[2017-04-26] MEDS ORDERED: Permethrin Cream Rinse 60 ML LIQUID TP ONE (18:07)
--- NOTE | 2017-04-27 05:52 | Discharge Summary ---
Date of Encounter: 04/26/17 Time of Encounter: 21:00 - Discharge Diagnosis (1) Abdominal pain Priority: Primary Status: Acute Qualifiers: Abdominal location: unspecified location Qualified Code(s): R10.9 - Unspecified abdominal pain (2) Ileitis, terminal Priority: Primary Status: Acute Qualifiers: Digestive disease complication type: unspecified complication Qualified Code(s): K50.019 - Crohn's disease of small intestine with unspecified complications - Discharge Medications Home Medications: Sertraline [Zoloft] 25 mg PO DAILY 06/14/16 [History] Allergies/Adverse Reactions: 3 Allergy/AdvReac Type Severity Reaction Status Date / Time No Known Allergies Allergy Verified 04/09/17 20:36 Date of admission: 04/24/17 00:53 Primary care physician: PCP NONE Consults: 04/24/17 01:00 Consult to Surgery [CONS] Routine Consulting Provider: [facility] Reason for Consult: abd pain, ileitis Call Completed: No 04/25/17 10:27 Consult to Gastroenterology [CONS] Routine Consulting Provider: Gastroenterology Ren[facility] Reason for Consult: Ileitis Call Completed: Yes - Patient Status Disposition: Left Against Medical Advice Condition: Good - Discharge Instructions Follow Up With: Daniela Chau DO [Resident] - 05/04/17 9:00 am NONE,PCP [Primary Care Provider] - Hospital course: Ms. Stone is a 21 year old female admitted here with abdominal pain and possible acute ileitis. She was started on empirical abx and IV hydration. She did go for Colonoscopy today which did show stricture in the terminal ileum. Biopsies were taken. I was called in by her nrse to talk to pt since she wants to leave AMA. I did go and talk to the pt and discussed with her about her colonoscopy finding. Also requested to stay in the hospital. Pt decided to leave AMA, she does not want to stay until I finish her discharge medications. At least she agreed to call GI for an out pt f/u as well as to discuss about her colon biopsy results. Also I recommend the pt to come back to ER if she gets worsening abdominal pain or blood in her stools. - Time Spent with Patient Total time spent providing and/or coordinating discharge services: - Constitutional Vitals: Temp Pulse Resp BP Pulse Ox 98.3 F 62 20 97/57 92 04/26/17 15:27 04/26/17 15:27 04/26/17 15:27 04/26/17 15:27 04/26/17 15:27 General appearance: Present: A&O X 3, no acute distress, answers questions appropriately
== END 2017-04-26 21:39 | disposition left against medical advice (07) | DRG 245 ==
LOC: 3BNU → SUATTDRO 04-24 00:53
PROVIDERS: ADMIT Family Medicine; ATTEND Internal Medicine
PROC: ENDOCBX (2017-04-26 13:30)

== ENCOUNTER → 2020-03-16 21:32 | Observation (INO) ==
[2020-03-16 20:31] LABS: Bilirubin,Urine Negative (Negative); Blood,Urine Trace (Negative); Clarity,Urine Turbid (Clear); Color,Urine Yellow (Yellow); Glucose,Urine (UA) Normal (Normal); Ketones,Urine Negative (Negative); Leukocyte Esterase,Urine Large (Negative); Mucus,Urine Few per lpf (None-Few); Nitrite,Urine Negative (Negative); PH,Urine 6.5 pH Units (5.0-8.0); Protein,Urine 30 mg/dL (Neg-Trace); Specific Gravity,Urine 1.023 (1.010-1.025); Squamous Epithelial Cell,Urine Moderate per hpf (None-Few); Urobilinogen,Urine Normal (Normal); WBC,Urine 15-30 per hpf (0-3)
== END | disposition home or self-care (01) ==
LOC: 1NENULAB
PROVIDERS: ADMIT Student in an Organized Health Care Education/Training Program; ATTEND Student in an Organized Health Care Education/Training Program

== ENCOUNTER 2020-05-06 12:40 | Inpatient (IN) ==
[2020-05-06] MEDS ORDERED: Lidocaine 1% 20 ML MDV INFILT PRN (13:13)
[2020-05-06] MEDS ORDERED: Ondansetron 4 MG/2 ML VIAL IVP PRN ×2 (13:13→23:00)
[2020-05-06] MEDS ORDERED: Azithromycin 500 MG in 0.9 % Sodium Chloride 250 ML IVPB ONE (13:13)
[2020-05-06] MEDS ORDERED: Famotidine 20 MG/2 ML VIAL IVP PRN (13:13)
[2020-05-06] MEDS ORDERED: *HR* FentaNYL (PF) 100 MCG/2 ML VIAL IVP PRN (13:13)
[2020-05-06] MEDS ORDERED: Metoclopramide 10 MG/2 ML VIAL IVP PRN (13:13)
[2020-05-06] MEDS ORDERED: Naloxone 0.4 MG/ML INJ IVP PRN (13:13)
[2020-05-06 13:36] LABS: Basophils # 0.1 K/mcL (0.0-0.2); Basophils % 0.5 %; Eosinophils # 0.6 K/mcL (0.0-0.6); Eosinophils % 3.1 %; Hematocrit 35.6 % (35.3-44.9); Hemoglobin 11.2 g/dL (11.5-15.4); Immature Granulocytes % 1.1 % (0-4); Lymphocytes # 2.9 K/mcL (0.6-4.6); Lymphocytes % 14.8 %; Mean Corpuscular HGB Conc 31.5 g/dL (31.6-35.5); Mean Corpuscular Hemoglobin 27.9 pg (28.0-33.3); Mean Corpuscular Volume 88.8 fL (83.0-100.0); Mean Platelet Volume 10.6 fL (9.4-12.4); Monocytes # 0.8 K/mcL (0.0-1.3); Monocytes % 4.2 %; Neutrophils # 14.9 K/mcL (1.6-8.9); Platelet Count 272 K/mcL (140-400); Red Blood Count 4.01 M/mcL (3.82-4.97); Segmented Neutrophils % 76.3 %; White Blood Count 19.5 K/mcL (4.3-11.1)
[2020-05-06 13:46] LABS: Amphetamine Screen,Urine Negative ng/mL (Cutoff=1000); Barbiturate Screen,Urine Negative ng/mL (Cutoff=200); Benzodiazepines Screen,Urine Negative ng/mL (Cutoff=200); Cannabinoid Screen,Urine Negative ng/mL (Cutoff = 50); Cocaine Screen,Urine Negative ng/mL (Cutoff= 300); Opiate Screen,Urine Negative ng/mL (Cutoff=300); Phencyclidine Screen,Urine Negative ng/mL (Cutoff=25)
[2020-05-06] MEDS ORDERED: Oxytocin 20 units/ LR 1000 mL 20 UNIT/1,000 ML BAG IVC SCH (14:00)
[2020-05-06] MEDS: Ringers Solution, Lactated 1,000 ML IVC SCH ×2 (14:22→15:52)
[2020-05-06] MEDS ORDERED: EPHEDrine 50 MG/ML VIAL IVP PRN (15:05)
[2020-05-06] MEDS ORDERED: Epidural Premix (fent/bupiv) 110 ML EP SCH (15:15)
[2020-05-06 20:06] LABS: Adenovirus Not Detected (Not Detect); Bordetella Pertussis Not Detected (Not Detect); Chlamydophila pneumoniae Not Detected (Not Detect); Coronavirus 229E Not Detected (Not Detect); Coronavirus HKU1 Not Detected (Not Detect); Coronavirus NL63 Not Detected (Not Detect); Coronavirus OC43 Not Detected (Not Detect); Human Metapneumovirus Not Detected (Not Detect); Human Rhinovirus/Enterovirus Not Detected (Not Detect); Influenza A Subtype 2009 H1 Not Detected (Not Detect); Influenza B Not Detected (Not Detect); Mycoplasma pneumoniae Not Detected (Not Detect); Parainfluenza Virus 1 Not Detected (Not Detect); Parainfluenza Virus 2 Not Detected (Not Detect); Parainfluenza Virus 3 Not Detected (Not Detect); Parainfluenza Virus 4 Not Detected (Not Detect); Respiratory Syncytial Virus Not Detected (Not Detect); SARS-CoV-2 Not Detected (Not Detect)
[2020-05-06] MEDS ORDERED: *HR* Propofol 200 MG/20 ML VIAL IVP ONE (22:13)
[2020-05-06] MEDS ORDERED: Chloroprocaine/PF 20 ML VIAL INFILT ONE (22:17)
[2020-05-06] MEDS ORDERED: *HR* FentaNYL (PF) 100 MCG/2 ML VIAL ONE (22:22)
[2020-05-06] MEDS ORDERED: Ketamine *HR* 500 MG/10 ML MDV ONE (22:22)
[2020-05-06] MEDS ORDERED: *HR* Morphine Sulfate/PF 10 MG/10 ML AMPUL ONE (22:22)
[2020-05-06] MEDS ORDERED: Acetaminophen IV 1,000 MG/100 ML BAG IVPB ONE (22:28)
[2020-05-06] MEDS ORDERED: Ondansetron 4 MG/2 ML VIAL ONE (22:37)
[2020-05-06] MEDS ORDERED: Promethazine 6.25 MG in Water for inj. (sterile) 20 ML IVPB PRN (23:00)
[2020-05-06] MEDS ORDERED: *HR* OxyCODONE/APAP 5/325 TABLET PO PRN (23:00)
[2020-05-06] MEDS: *HR* HYDROmorphone PF 0.5 MG/0.5 ML SYRINGE IVP PRN (23:41)
[2020-05-07] MEDS: *HR* HYDROmorphone PF 0.5 MG/0.5 ML SYRINGE IVP PRN (01:05)
[2020-05-07] MEDS ORDERED: Ondansetron 4 MG/2 ML VIAL IVP PRN (01:28)
[2020-05-07] MEDS ORDERED: Rho Immune Globulin 1,500 UNIT SYRINGE IM ONE ×2 (01:28→09:23)
[2020-05-07] MEDS ORDERED: Ibuprofen 600 MG TABLET PO PRN (01:28)
[2020-05-07] MEDS ORDERED: Metoclopramide 10 MG/2 ML VIAL IVP PRN (01:28)
[2020-05-07] MEDS ORDERED: Naloxone 0.4 MG/ML INJ IVP PRN (01:28)
[2020-05-07] MEDS ORDERED: Ringers Solution, Lactated 1,000 ML IVC SCH (01:28)
[2020-05-07] MEDS ORDERED: Sennosides 8.6 MG TABLET PO PRN (01:28)
[2020-05-07] MEDS ORDERED: Oxytocin 20 units/ LR 1000 mL 20 UNIT/1,000 ML BAG IVC SCH ×2 (01:28)
[2020-05-07] MEDS ORDERED: Simethicone 80 MG TAB.CHEW PO PRN (01:28)
[2020-05-07 05:18] LABS: Basophils # 0.1 K/mcL (0.0-0.2); Basophils % 0.3 %; Eosinophils # 0.4 K/mcL (0.0-0.6); Eosinophils % 1.8 %; Hematocrit 31.9 % (35.3-44.9); Hemoglobin 10.1 g/dL (11.5-15.4); Immature Granulocytes % 0.7 % (0-4); Lymphocytes # 2.7 K/mcL (0.6-4.6); Lymphocytes % 12.2 %; Mean Corpuscular HGB Conc 31.7 g/dL (31.6-35.5); Mean Corpuscular Hemoglobin 28.3 pg (28.0-33.3); Mean Corpuscular Volume 89.4 fL (83.0-100.0); Mean Platelet Volume 11.1 fL (9.4-12.4); Monocytes # 0.8 K/mcL (0.0-1.3); Monocytes % 3.6 %; Neutrophils # 17.7 K/mcL (1.6-8.9); Platelet Count 250 K/mcL (140-400); Red Blood Count 3.57 M/mcL (3.82-4.97); Red Cell Distribution Width 14.9 % (11.5-14.5); Segmented Neutrophils % 81.4 %; White Blood Count 21.7 K/mcL (4.3-11.1)
[2020-05-07] MEDS: *HR* OxyCODONE/APAP 5/325 TABLET PO PRN ×4 (06:51→23:09)
[2020-05-07] MEDS: metroNIDAZOLE 500 MG TABLET PO SCH ×3 (08:02→19:49)
[2020-05-07] MEDS: cephALEXin 500 MG CAPSULE PO SCH ×3 (08:02→19:49)
[2020-05-07] MEDS: Prenatal Vit/FA 1 EACH TABLET PO SCH (08:02)
[2020-05-07] MEDS: *HR* Enoxaparin 40 MG/0.4 ML SYRINGE SQ SCH ×2 (08:04→19:49)
[2020-05-07] MEDS ORDERED: Measles/Mumps/Rubella Vacc 0.5 ML VIAL SQ ONE (15:20)
[2020-05-07] MEDS ORDERED: Acetaminophen 325 MG TABLET PO PRN (23:20)
[2020-05-08] MEDS: *HR* OxyCODONE/APAP 5/325 TABLET PO PRN (06:54)
[2020-05-08 07:37] VITALS: BP 126/67
[2020-05-08] MEDS: metroNIDAZOLE 500 MG TABLET PO SCH (07:49)
[2020-05-08] MEDS: *HR* Enoxaparin 40 MG/0.4 ML SYRINGE SQ SCH (07:49)
[2020-05-08] MEDS: Prenatal Vit/FA 1 EACH TABLET PO SCH (07:49)
[2020-05-08] MEDS: cephALEXin 500 MG CAPSULE PO SCH (07:50)
== END 2020-05-08 12:55 | disposition home or self-care (01) | DRG 540 ==
LOC: 1NENULAB → OBSVTOIN 12:40 → 1NENUOBS 05-07 01:28
PROVIDERS: ADMIT Obstetrics & Gynecology; ATTEND Obstetrics & Gynecology